=== PATIENT | female | born 2000 | race American Indian/Alaskan Native ===

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

== ENCOUNTER 2020-04-10 13:44 | Emergency (ER) | payer MEDICAID ==
[2020-04-10 13:58] VITALS: BP 120/64
[2020-04-10 15:47] LABS: Bacteria,Urine 1+ /HPF (Negative); Bilirubin,Urine NEG (Negative); Blood,Urine LG (Negative); Color,Urine Red (Yellow); Mucus,Urine FEW /HPF
[2020-04-10 15:49] LABS: RBC,Urine > 182.0 /HPF (0.0-6.0)
[2020-04-10 15:52] LABS: HCG Qualitative,Urine Negative (Negative)
--- NOTE | 2020-04-10 19:10 | Emergency Department Report ---
ED Female HPI - General Chief complaint: Vaginal Bleeding Stated complaint: ABD PAIN Time Seen by Provider: 04/10/20 16:26 Source: patient, EMS Mode of arrival: Ambulatory Limitations: No Limitations - History of Present Illness Initial comments: 19-year-old obese female just emerged from complaining of a 2 to 3-day history of vaginal bleeding which has not occurred for some time was to some concern she was started with a control implant into her right arm and states she had no. Shortly after receiving that several months ago and noted some breakthrough bleeding which occurred 2-3 2 days ago minimal cramping no fevers, chills, sweats no vaginal discharge preceding the bleeding but she did notice a odor. Reports no possibility for . No no intravaginal trauma. She spoke to her [facility] over the phone who told her this was not an abnormal finding but she wanted to be evaluated in the emergency department for confirmation. MD Complaint: vaginal bleeding Severity: mild Quality: dull Consistency: constant Improves with: none Worsens with: none - Related Data Allergies Allergy/AdvReac Type Severity Reaction Status Date / Time No Known Allergies Allergy Unverified 03/24/19 22:17 ED Review of Systems ROS: Stated complaint: ABD PAIN Other details as noted in HPI Comment: All other systems reviewed and negative ED Past Medical Hx - Past Medical History Previous Medical History?: No - Surgical History Past Surgical History?: Yes Additional Surgical History: MANAN BC IMPLANT - Social History Smoking Status: Never Smoker Substance Use Type: None ED Physical Exam - General Limitations: No Limitations General appearance: alert, in no apparent distress - Head Head exam: Present: atraumatic, normocephalic - Eye Eye exam: Present: normal appearance - ENT ENT exam: Present: mucous membranes moist - Neck Neck exam: Present: normal inspection - Respiratory Respiratory exam: Present: normal lung sounds bilaterally. Absent: respiratory distress - Cardiovascular Cardiovascular Exam: Present: regular rate, normal rhythm. Absent: systolic murmur, diastolic murmur, rubs, gallop - GI/Abdominal GI/Abdominal exam: Present: soft, normal bowel sounds - Extremities Exam Extremities exam: Present: normal inspection - Back Exam Back exam: Present: normal inspection - Neurological Exam Neurological exam: Present: alert, oriented X3 - Psychiatric Psychiatric exam: Present: normal affect, normal mood - Skin Skin exam: Present: warm, dry, intact, normal color. Absent: rash ED Course Vital Signs 04/10/20 13:52 Temperature 98.8 F Pulse Rate 80 Respiratory 16 Rate Blood Pressure 120/64 O2 Sat by Pulse 98 Oximetry ED Medical Decision Making - Lab Data Lab Results 04/10/20 Range/Units 14:23 Urine Color Red (Yellow) Urine Turbidity Slightly-cloudy (Clear) Urine pH 6.0 (5.0-7.0) Ur Specific [place] 1.021 (1.003-1.030) Urine Protein 30 mg/dl (Negative) mg/dL Urine Glucose (UA) Neg (Negative) mg/dL Urine Ketones Neg (Negative) mg/dL Urine Blood Lg (Negative) Urine Nitrite Neg (Negative) Urine Bilirubin Neg (Negative) Urine Urobilinogen 4.0 (<2.0) mg/dL Ur Leukocyte Esterase Tr (Negative) Urine WBC (Auto) 2.0 (0.0-6.0) /HPF Urine RBC (Auto) > 182.0 (0.0-6.0) /HPF U Epithel Cells (Auto) 6.0 (0-13.0) /HPF Urine Bacteria (Auto) 1+ (Negative) /HPF Urine Mucus Few /HPF Urine HCG, Qual Negative (Negative) - Medical Decision Making Female presents emergency department with over 2 to 3 days days of episodic vaginal bleeding most likely of a nonemergent etiology. Based on the history, examination, the ED work-up patient's presentation not consistent with an ectopic , molar , life threatening coagulopathy, serious bacterial infection, central process or other emergency. Patient's bleeding is most likely secondary to, fibroids, or the nonemergent cause of abnormal uterine bleeding. No vaginal tears were appreciated on examination Disposition: We will discharge home with return precautions and instructions for prompt [facility] follow-up Critical care attestation.: If time is entered above; I have spent that time in minutes in the direct care of this critically ill patient, excluding procedure time. ED Disposition Clinical Impression: Vaginal bleeding Disposition: DC-01 TO HOME OR SELFCARE Is pt being admited?: No Does the pt Need Aspirin: No Condition: Stable Instructions: Menstruation (ED) Additional Instructions: Please follow-up with your [facility] for further evaluation and treatment options. Your vital signs are stable the wet prep is normal no evidence of any infectious processes is present. Vaginal bleeding not uncommon with utilization of hormone therapy for control Referrals: PRIMARY CARE, [Primary Care Provider] - 3-5 Days [facility] [Provider Group] - 3-5 Days
== END 2020-04-10 19:17 | disposition home or self-care (01) ==
LOC: ED 13:44
DX: N93.9 Abnormal uterine and vaginal bleeding, unspecified (principal)
CPT/HCPCS: 81001; 81025; 87210; 87591